=== PATIENT | male | born 1960 ===

== ENCOUNTER 2024-02-21 12:50 | Outpatient (CLI) | payer OTHER | END 2024-02-21 23:59 | disposition short-term general hospital (02) | LOC: EMS 12:50 | DX: M54.6 Pain in thoracic spine (principal); M79.651 Pain in right thigh; R06.82 Tachypnea, not elsewhere classified; S79.921A Unspecified injury of right thigh, initial encounter; W13.2XXA Fall from, out of or through roof, initial encounter; Y93.H3 Activity, building and construction; Y92.018 Other place in single-family (private) house as the place of occurrence of the external cause; Y99.0 Civilian activity done for income or pay | CPT/HCPCS: A0425; A0427 ==